=== PATIENT | female | born 1970 | race Caucasian/White ===

== ENCOUNTER 2019-12-07 15:54 | Emergency (ER) | payer OTHER, SELFPAY ==
[2019-12-07 16:00] VITALS: BP 148/92; BP 149/81; PULSE 87; PULSE 89; RESP 16; TEMP 36.8; O2SAT 100; BMI 30.1
--- NOTE | 2019-12-07 16:35 | ED_ITS ---
HPI - Headache General Chief Complaint: Headache Stated Complaint: headache Time Seen by Provider: 12/07/19 16:29 Source: patient Mode of arrival: ambulatory History of Present Illness HPI Narrative: 49-year-old female with a history of migraines coming in for headache since this morning. Patient states onset was very slow within couple hours starting at [facility] went to urgent care and referred here for evaluation. States took her Fioricet at home and did not help. Patient states gets many migraines since she was 14 years of age. Denies fevers chills denies neck stiffness denies trauma. Patient states this does feel like prior headaches MD elicited complaint: migraine Pertinent past history: migraines Onset description: gradually Location: frontal Severity: moderate Quality & Timing: aching Associated symptoms: nausea Related Data Allergies Allergy/AdvReac Type Severity Reaction Status Date / Time codeine [CODEINE] Allergy Unknown UNKNOWN Unverified 11/16/19 16:10 Iodinated Contrast Media Allergy Unknown UNKNOWN Unverified 11/16/19 16:10 [IV DYE, IODINE CONTAINING CONTRAST ] naproxen [NAPROXEN] Allergy Unknown UNKNOWN Unverified 11/16/19 16:10 Penicillins [PENICILLINS] Allergy Unknown UNKNOWN Unverified 11/16/19 16:10 From COMPAZINE Allergy Unknown UNKNOWN Uncoded 11/16/19 16:10 Review of Systems Constitutional: Comments: Constitutional : No Weight loss, No Fever, No Chills, No Night Sweats, No Fatigue, No Malaise ENT/Mouth : No Hearing loss, No Ear Pain, No Nasal Congestion, No Sinus Pain, No Hoarseness, No sore throat, No Rhinorrhea, No Swallowing Difficulty Eyes: No Eye Pain, No Swelling, No Redness, No Foreign Body, No Discharge, No Vision Changes Cardiovascular : No Chest Pain, No SOB, No Dyspnea on Exertion, No Orthopnea, No Edema, No Palpitations Respiratory : No Cough, No Sputum, No Wheezing, No Smoke Exposure, No Dyspnea Gastrointestinal : No Nausea, No Vomiting, No Diarrhea, No Constipation, No abdominal Pain, No Hematochezia, No Melena Genitourinary : no irregular bleeding, No Dysuria, No Urinary Frequency, No Hematuria, No Urinary Incontinence, No Urgency, No Flank Pain, No Urinary Flow Changes, No Hesitancy Musculoskeletal : No joint pain, No Myalgias, No Joint Swelling Skin : No Skin Lesions, No rash Neuro : No Weakness, No Numbness, No Paresthesias, No Loss of Consciousness, No Dizziness, positive Headache Psych : No Anxiety/Panic, No Depression, No SI/HI/AH/VH, No Social Issues, Heme/Lymph: No Bruising, No Bleeding,No Lymphadenopathy Endocrine : No Polyuria, No Polydipsia, No Temperature Intolerance [facility] Past Medical History Attestation statement: The following information was validated with the patient. Medical History (Updated 12/07/19 @ 18:33 by Andrae Galvez DO) Head ache Migraine Surgical History (Updated 12/07/19 @ 16:38 by Andrae Galvez DO) deliv NOS-unsp Social History Social History Alcohol intake: never Smoked in Last 30 Days: No Use of substances other than those prescribed or required for medical reasons: No Advance Directives: No Advance Directives Information Provided: Yes Physical Exam Vital Signs and I&O and Narrative: Vital Signs and I&O: Vital Signs Temp 98.3 F 12/07/19 16:00 Pulse 74 12/07/19 18:30 Resp 20 12/07/19 18:30 BP 117/71 12/07/19 18:30 Pulse Ox 99 12/07/19 18:30 Intake & Output 12/06/19 12/07/19 12/07/19 18:59 06:59 18:59 Weight 67.585 kg Body Mass Index 30.1 vital signs reviewed Const: Other: Appearance: Alert. Oriented X3. No acute distress. Eyes: Pupils equal, round and reactive to light. ENT: Pharynx normal. Neck: Normal inspection. Neck supple. No lymph nodes noted. No crepitus. negative for stiffness negative rigidity CVS: Normal heart rate and rhythm. Pulses normal. Normal S1 and S2 Respiratory: No respiratory distress. Breath sounds normal. No Wheezing. No rales Abdomen: Soft and nontender. No rigidity. No distention. good BS x4 Skin: Skin warm and dry. Normal skin color. Normal skin turgor. Extremities: No lower extremity edema. No lower extremity edema. No Lac erations. No Rash Neuro: Oriented X 3. No motor deficit. No sensory deficit. Moving all extermities. No slurred speech. Course Course Course Narrative: will place IV with IV medications a differential diagnosis includes migraine. At this point I doubt patient has subarachnoid hemorrhage secondary to history and exam MDM - Headache MDM Narrative Medical decision making narrative: 41-year-old female with a history of migraines with chief complaint of migraines much improved with IV Toradol, Reglan and fluids and Benadryl. Patient wants to go home. I doubt patient has septic meningitis or subarachnoid point Discharge Plan Discharge Clinical Impression: Migraine Patient Disposition: Home, Self-Care Instructions: Migraine Headache (ED) Additional Instructions: Thank you for visiting the emergency department today. If your symptoms worsen or do not resolve completely please return to the emergency department immediately or call 911. if he have any questions please call your primary care physician Referrals: Devika Garzon MD [Primary Care Provider] - 2 days
[2019-12-07] MEDS: 0.9 % Sodium Chloride 1,000 ML 999 ML IVCONT (17:28)
[2019-12-07] MEDS: diphenhydrAMINE HCL 50 MG/ML VIAL 25 MG IVPUSH (17:28)
[2019-12-07] MEDS: Metoclopramide HCl 10 MG/2 ML VIAL IVPUSH (17:29)
[2019-12-07] MEDS: Ketorolac Tromethamine 30 MG/ML VIAL IVPUSH (17:29)
[2019-12-07 18:30] VITALS: BP 117/71; PULSE 74; RESP 20; O2SAT 99
--- NOTE | 2019-12-07 18:32 | PC.NURSE ---
PT STATES RELIEF FROM TREATMENTS PROVIDED.
== END 2019-12-07 18:46 | disposition home or self-care (01) ==
PROVIDERS: Emergency Provider Emergency Medicine; PCP Internal Medicine
DX: G43.909 Migraine, unspecified, not intractable, without status migrainosus (principal)
CPT/HCPCS: 96361; 96374; 96375; 99284; J1200; J1885; J2765